=== PATIENT | female | born 1995 | race Caucasian/White ===

== ENCOUNTER → 2025-02-01 17:43 | Outpatient (CLI) | payer OTHER, SELFPAY ==
[2025-02-01 19:21] LABS: Urine N gonorrhoeae NOT DETECTED
[2025-02-01 19:25] LABS: Urine Chlamydia NOT DETECTED
== END ==
PROVIDERS: Visit Provider Chiropractor
DX: Z11.3 Encounter for screening for infections with a predominantly sexual mode of transmission (principal)
CPT/HCPCS: 87210; 87491; 87591

== ENCOUNTER → 2025-02-02 14:59 | Outpatient (CLI) | payer OTHER, SELFPAY ==
[2025-02-02 18:22] LABS: HIV 1 & 2 Ab/Ag 4th Gen Combo NEGATIVE (NEGATIVE); Hep C Virus Ab w/Reflex Quant NEGATIVE s/c (NEGATIVE)
== END ==
PROVIDERS: Referring Provider Chiropractor; Visit Provider Chiropractor
DX: Z11.3 Encounter for screening for infections with a predominantly sexual mode of transmission (principal)
CPT/HCPCS: 86592; 86803; 87389

== ENCOUNTER → 2025-04-01 17:44 | Outpatient (CLI) | payer OTHER, SELFPAY ==
[2025-04-01 19:52] LABS: Urine N gonorrhoeae NOT DETECTED
[2025-04-01 19:58] LABS: Urine Chlamydia NOT DETECTED
== END ==
PROVIDERS: Visit Provider Chiropractor
DX: Z71.1 Person with feared health complaint in whom no diagnosis is made (principal)
CPT/HCPCS: 87491; 87591